=== PATIENT | female | born 1990 | race Two or more races ===

== ENCOUNTER 2025-01-21 19:00 | Emergency (ER) | payer BC, OTHER ==
[~2025-01-21] VITALS: Ht 162.6 cm; Wt 94.7 kg
[2025-01-21 19:01] VITALS: BP 184/121; PULSE 127; RESP 22; TEMP 98.4; O2SAT 97
--- NOTE | 2025-01-21 20:01 | ED.PDOC ---
History of Present Illness HPI Comments 34-year-old female presents to the ER with prior medical history of asthma(uses inhaler with albuterol) and the chief complaint of flu-like symptoms. Patient reports on having fever, chills, cough with a sharp chest pain, shortness a breath which increases when lying down, nasal congestion since Monday of . Patient reports on going to urgent care in her heart rate was 137 she was advised to go to the ER immediately. Denies any other symptoms at this time. Denies chills, fever, N/V/D, SOB, CP w/o cough. No other associated symptoms, modifiers, recent injuries or sick contacts present at this time. REVIEW OF SYSTEMS: General: + fever, + chills, or fatigue HEENT: No sore throat, no earache, no congestion, no neck pain. Cardiac: + chest pain. No palpitations. Lungs: No shortness of breath, + cough. GI: No nausea, no vomiting, no diarrhea, no constipation, no abdominal pain : No dysuria, frequency, or urgency. No hematuria. Musculoskeletal: No joint pain , no joint swelling, no extremity edema. Skin: No rash, no itching. Neuro: No headache, no dizziness, no weakness PHYSICAL EXAM: General: Awake, alert and oriented. No acute distress. Skin: Skin in warm, dry and intact without rashes or lesions. HEENT: The head is normocephalic and atraumatic. Conjunctivae are clear without exudates or hemorrhage. Sclera is non-icteric. Neck: Normal range of motion. No JVD. Cardiac: Regular rate Respiratory: No signs of respiratory distress. No Stridor. Extremities: Upper and lower extremities are atraumatic in appearance without deformity. Neurological: The patient is awake, alert and oriented to person, place, and time with normal speech. Speech is clear. There is no facial asymmetry. Normal Gait. Psychiatric: Appropriate mood and affect. Good judgement and insight. Chief Complaint: Flu like Time Seen by MD: 20:00 Reviewed Notes: Nurses Notes, Medications, Allergies Allergies: Coded Allergies: NO KNOWN ALLERGIES (Unverified , 01/21/25) Information Source: Patient Mode of Arrival: Ambulatory Severity: Moderate Timing: Days Duration: Since onset, Days Prehospital treatment: None Past Medical History PAST MEDICAL HISTORY: Asthma (Uses inhaler with albuterol) Surgical History: Denies all surgeries LOGISTICS SYSTEM ENGINEER History: No Pertinent LOGISTICS SYSTEM ENGINEER History Family History Family History: Reviewed,noncontributory to illness, Unknown Social History Smoker: Non-Smoker Alcohol: Denies ETOH Use Drugs: Denies Drug Use Lives In: Home Was a procedure done? Was a procedure done?: No Differential Dx Considerations may include: Viral illness, pharyngitis, otitis media, bacteremia, pneumonia, UTI, meningitis, sepsis, other X-Ray, Labs, Meds, VS Vital Signs Date Time Temp Pulse Resp B/P (MAP) Pulse Ox O2 Delivery O2 Flow Rate FiO2 01/21/25 19:01 98.4 127 22 184/121 97 98.4 Time of 1ST Reevaluation: 20:30 Reevaluation 1ST: Unchanged Patient Education/Counseling: Need For Follow Up Family Education/Counseling: No Family Present SEPSIS Sepsis Screen Date sepsis recognized/suspect: Jan 21, 2025 Time Sepsis recognized/suspect: 1900 Recent Procedure: No On Antibiotic Therapy: No Respiratory Rate >20: Yes Heart Rate >90: Yes Temp<36 C (96.8 F) or >38.3 C: No SBP <90 or MAP <65 mmHG: No New Acute Mental Status Change: No Is the patient on CPAP, BIPAP,: No Vital Signs Date Time Temp Pulse Resp B/P (MAP) Pulse Ox O2 Delivery O2 Flow Rate FiO2 01/21/25 19:01 98.4 127 22 184/121 97 98.4 Departure 1 Departure Time of Disposition: 20:41 Impression: Primary Impression: Fever Additional Impressions: Rapid heart rate Eloped from emergency department Disposition: 07 LEFT AWOL/ELOPED Condition: Stable Critical Care Note Critical Care Time?: No Stability Stability form required: No I personally scribed for MONIKA MCBRIDE MD ([email or web address]) on 01/21/25 at 20:01. Electronically submitted by Rakesh Hermosillo ([email or web address]). MONIKA MCBRIDE MD Jan 21, 2025 20:01
[2025-01-22] MEDS ORDERED: ACET-1304 PO (12:56)
[2025-01-22] MEDS ORDERED: AZIT500T66 PO (12:56)
== END 2025-01-21 19:26 | disposition left against medical advice (07) ==
LOC: ER 19:02
DX: R50.9 Fever, unspecified (principal); R00.0 Tachycardia, unspecified; J45.909 Unspecified asthma, uncomplicated

== ENCOUNTER 2025-01-22 11:03 | Emergency (ER) | payer BC, OTHER ==
[~2025-01-22] VITALS: Ht 162.6 cm; Wt 93.3 kg
--- NOTE | 2025-01-22 12:14 | ED.PDOC ---
SOB-HPI HPI Comments A 34 YEAR OLD FEMALE PRESENTS TO THE ED WITH COMPLAINT OF FLU LIKE SYMPTOMS . PT HAS BEEN HAVING COUGH, NASAL CONGESTION, AND SORE THROAT FOR THE PAST 4 DAYS. PT IN ED HAS NOTED TEMP 100.1 F AND HEART RATE 115 WITH OTHERWISE STABLE VITALS. PATIENT DENIES FEVER, CHILLS, SHORTNESS OF BREATH, CHEST PAIN, ABDOMINAL PAIN, NAUSEA, VOMITING, HEADACHE, OR OTHER COMPLAINTS. NO OTHER SYMPTOMS OR MODIFYING FACTORS AT THIS TIME. PATIENT IS ALERT, ORIENTED X 4, AND HAS STEADY GAIT. Chief Complaint: Flu like Time Seen by MD: 12:09 Reviewed notes: Nurses Notes, Medications, Allergies Information Source: Patient Mode of Arrival: Ambulatory Brought in by: SELF Severity: Moderate Timing: Days Duration: Since onset, Days Context: Spontaneous Onset PE Risk Factors: None History of: Recent URI Associated Signs and Symptoms: Cough, Nasal Congestion, Sore Throat If cough with SOB: Productive Past Medical History PAST MEDICAL HISTORY: Asthma Surgical History: Denies all surgeries TRADEMARK AFFIXER History: No Pertinent TRADEMARK AFFIXER History Family History Family History: Reviewed,noncontributory to illness, Unknown Social History Smoker: Non-Smoker Alcohol: Denies ETOH Use Drugs: Denies Drug Use Lives In: Home Constitutional: denies: chills, diaphoresis, fatigue, fever, malaise, sweats, weakness, others EENTM: reports: nose congestion, throat pain, throat swelling; denies: blurred vision, double vision, ear bleeding, ear discharge, ear drainage, ear pain, ear ringing, eye pain, eye redness, hearing loss, mouth pain, mouth swelling, nasal discharge, nose bleeding, nose pain, photophobia, tearing, voice changes, others Respiratory: reports: cough; denies: hemoptysis, orthopnea, SOB at rest, shortness of breath, SOB with excertion, stridor, wheezing, others Cardiovascular: denies: chest pain, dizzy spells, diaphoresis, Dyspnea on exertion, edema, irregular heart beat, left arm pain, lightheadedness, palpitations, PND, syncope, others Gastrointestinal: denies: abdomen distended, abdominal pain, blood streaked bowels, constipated, diarrhea, dysphagia, difficulty swallowing, hematemesis, melena, nausea, poor appetite, poor fluid intake, rectal bleeding, rectal pain, vomiting, others Genitourinary: denies: abnormal vagina bleeding, burning, dyspareunia, dysuria, flank pain, frequency, hematuria, incontinence, pain, , vagina discharge, urgency, others Neurological: denies: dizziness, fainting, headache, left sided numbness, left sided weakness, numbness, paresthesia, pre-existing deficit, right sided numbness, right sided weakness, seizure, speech problems, tingling, tremors, weakness, others Musculoskeletal: denies: back pain, gout, joint pain, joint swelling, muscle pain, muscle stiffness, neck pain, others Integumetry: denies: bruises, change in color, change in hair/nails, dryness, laceration, lesions, lumps, rash, wounds, others Allergic/Immunocompromised: denies: Difficulty Healing, Frequent Infections, Hives, Itching, others Hematologic/Lymphatic: denies: anemia, blood clots, easy bleeding, easy bruising, swollen glands, others Endocrine: denies: excessive hunger, excessive sweating, excessive thirst, excessive urination, flushing, intolerance to cold, intolerance to heat, unexplained weight gain, unexplained weight loss, others Psychiatric: denies: anxiety, bipolar disorder, depression, hopeless, panic disorder, schizophrenia, sleepless, suicidal, others All Other Systems: Reviewed and Negative Physical Exam General Appearance: No Apparent Distress, Obese HEENT: PERRL/EOMI, Pharyngeal Erythema (ERYTHEMA AND SWELLING ON TONSILIS, NO EXUDATES. ), TMs Normal Neck: Full Range of Motion, Non-Tender, Normal, Normal Inspection Respiratory: Chest Non-Tender, Lungs Clear, No Accessory Muscle Use, No Respiratory Distress, Normal Breath Sounds Cardiovascular: No Edema, No JVD, No Murmur, No Gallop, Normal Peripheral Pulses, Regular Rate/Rhythm Breast Exam: Deferred Gastrointestinal: No Organomegaly, Non Tender, No Pulsatile Mass, Normal Bowel Sounds, Soft Genitalia: Deferred Pelvic: Deferred Rectal: Deferred Extremities: No calf tenderness, Normal capillary refill, Normal inspection, Normal range of motion, Non-tender, No pedal edema Musculoskeletal : Apperance: Normal Neurologic: Alert, tinsel machine operator II-XII nml as Tested, No Motor Deficits, Normal Affect, Normal Mood, No Sensory Deficits Cerebellar Function: Normal Reflexes: Normal Skin: Dry, Normal Color, Warm Peripheral Pulses: 2+ carotid (R), 2+ carotid (L) Lymphatic: No Adenopathy Was a procedure done? Was a procedure done?: No Differential Dx Differential Diagnosis: Bronchitis, Pneumonia, Sinusitis, Peritonsillar Abscess, Peritonsillar Cellulitis, Pharyngitis, URI Comments VIRAL SYNDROME, INFLUENZA A AND B, COVID X-Ray, Labs, Meds, VS Vital Signs Date Time Temp Pulse Resp B/P (MAP) Pulse Ox O2 Delivery O2 Flow Rate FiO2 01/22/25 11:56 101/66 (78) 01/22/25 11:05 100.1 115 20 152/71 96 100.1 [place] [id number] [place] [id number] Ph: [phone] DIAGNOSTIC IMAGING Diagnostic Imaging Report : [id number] Signed PATIENT: JOSIAS HAWKINS ACCT: [id number] UNIT: [id number] : 1990 LOC: ER ROOM / BED: / AGE / SEX: 34 / F ADM STATUS: REG ER SERVICE 115 ORDERING PHYSICIAN: ARTUR GILL PROCEDURE(s): CXR1 - CHEST XRAY 1 VIEW REASON: COUGH ORDER NUMBER(s): [id number], ACCESSION NUMBER(s): [id number] CHEST RADIOGRAPH Indication: COUGH Technique: Single frontal view of the chest was obtained Comparison: None FINDINGS: Lines and Tubes: None Lungs: No focal consolidation. Pleura: No effusion. No pneumothorax. Cardiomediastinal contours: Unremarkable Bones: No acute osseous abnormality. IMPRESSION: No acute cardiopulmonary disease. ATED BY: BUD FOSTER MD DICTATED DATE/TIME: 01/22/251226 SIGNED BY: BUD FOSTER MD SIGNED DATE/TIME: 01/22/251226 CC: X-Ray, Labs, Meds, VS Comment COURSE: EXTERNAL MEDICAL RECORDS REVIEWED: [NONE] INDEPENDENT HISTORIANS: [NONE] SOCIAL DETERMINANTS OF HEALTH: [NONE] LABS ORDERED: NONE REVIEWED AND INTERPRETED RESULTS: IMPRESSION: No acute cardiopulmonary disease. IMAGING ORDERED: CHEST X-RAY TREATMENTS ORDERED: ROCEPHIN 1 G PROCEDURES PERFORMED: NONE CRITICAL CARE TIME: NONE I HAVE DISCUSSED THE PATIENT WITH THE ATTENDING PHYSICIAN, DR. VAZQUEZ, HE AGREES WITH THE PATIENT'S PLAN OF CARE AND DISPOSITION. BASED ON HISTORY OF PRESENT ILLNESS, AND PHYSICAL EXAM, PATIENT WILL BE DISCHARGED HOME. DISCUSSED PLAN FOR DISCHARGE HOME WITH RX [AZITHROMYCIN AND TYLENOL]. MEDICATION WARNINGS GIVEN. SHARED DECISION MAKING: DISCUSSED WITH PATIENT THAT THEIR WORKUP WAS NORMAL. PATIENT INSTRUCTED TO FOLLOW UP WITH PRIMARY CARE PROVIDER IN 1-2 DAYS FOR RE- EVALUATION OF SYMPTOMS. PATIENT VERBALIZES UNDERSTANDING TO RETURN TO ED FOR NEW OR WORSENING SYMPTOMS OR IF FOLLOW UP WITH PCP CANNOT BE OBTAINED. PATIENT FEELS COMFORTABLE GOING HOME AT THIS TIME. ALL QUESTIONS ADDRESSED AT TIME OF DISCHARGE. Time of 1ST Reevaluation: 13:20 Reevaluation 1ST: Improved Patient Education/Counseling: Diagnosis, Treatment, Need For Follow Up Family Education/Counseling: Diagnosis, Treatment, Need For Follow Up Medical Screening: No EMC Exist At This Time SEPSIS Sepsis Screen Date sepsis recognized/suspect: Jan 22, 2025 Time Sepsis recognized/suspect: 1106 Recent Procedure: No On Antibiotic Therapy: No Respiratory Rate >20: No Heart Rate >90: Yes Temp<36 C (96.8 F) or >38.3 C: No SBP <90 or MAP <65 mmHG: No New Acute Mental Status Change: No Is the patient on CPAP, BIPAP,: No Physician Orders Chest Xray 1 View (01/22/25 11:53) Vital Signs Date Time Temp Pulse Resp B/P (MAP) Pulse Ox O2 Delivery O2 Flow Rate FiO2 01/22/25 11:56 101/66 (78) 01/22/25 11:05 100.1 115 20 152/71 96 100.1 Departure 1 Departure Time of Disposition: 13: Impression: Primary Impression: Acute erythematous tonsillitis Additional Impression: URI (upper respiratory infection) Qualified Codes: J03.90 - Acute tonsillitis, unspecified Disposition: HOME / SELF CARE / HOMELESS Condition: Stable Additional Instructions: INSTRUCTIONS: FOLLOW-UP WITH PCP IN 1 TO 2 DAYS. TAKE MEDICATIONS PRESCRIBED. RETURN TO ED FOR ANY NEW OR WORSENING SYMPTOMS. e-Prescriptions Acetaminophen (Tylenol Extra Strength Fo) 500 Mg Tab 1000 MG PO BID, #30 TAB Prov: ARTUR GILL 01/22/25 Azithromycin (Azithromycin) 500 Mg Tab 1 TAB PO DAILY, #5 TAB Prov: ARTUR GILL 01/22/25 Discharged With: Self Critical Care Note Critical Care Time?: No Stability Stability form required: No Heart Score Heart Score: Heart Score Response (Comments) Value History N/A 0 EKG N/A 0 Age N/A 0 Risk Factors N/A 0 Troponin N/A 0 Total 0 I personally scribed for ARTUR GILL ([email or web address]) on 01/22/25 at 12:13. Electronically submitted by Bryon Cuevas ([employer]). I personally scribed for ARTUR GILL ([email or web address]) on 01/22/25 at 12:15. Electronically submitted by Bryon Cuevas ([employer]). I personally scribed for ARTUR GILL ([email or web address]) on 01/22/25 at 12:35. Electronically submitted by Bryon Cuevas ([employer]). ARTUR GILL Jan 22, 2025 12:13
--- NOTE | 2025-01-22 12:29 | DVH ---
CHEST RADIOGRAPH Indication: COUGH Technique: Single frontal view of the chest was obtained Comparison: None FINDINGS: Lines and Tubes: None Lungs: No focal consolidation. Pleura: No effusion. No pneumothorax. Cardiomediastinal contours: Unremarkable Bones: No acute osseous abnormality. IMPRESSION: No acute cardiopulmonary disease.
[2025-01-22] MEDS ORDERED: AZIT500T66 PO (12:56)
[2025-01-22] MEDS ORDERED: ACET-1304 PO (12:56)
[2025-01-22] MEDS: cefTRIAXone SOD 1,000 MG VL IM ONE (13:08)
[2025-01-22 13:19] VITALS: BP 101/68; PULSE 102; RESP 18; TEMP 100.4; O2SAT 96
== END 2025-01-22 13:25 | disposition home or self-care (01) ==
LOC: ER 11:03
DX: J03.90 Acute tonsillitis, unspecified (principal); J45.909 Unspecified asthma, uncomplicated
CPT/HCPCS: 71045; 96372; 99283; J0696